=== PATIENT | male | born 1945 | race Caucasian/White ===

== ENCOUNTER → 2016-10-06 | Outpatient (CLI) | payer OTHER ==
[~2016-10-06] MED LIST: CIPR-255 PO; SERT25TA PO
--- NOTE | 2016-10-06 09:52 | DIAGNOSTIC IMAGING REPORT ---
CHEST 2 VIEWS ROUTINE CLINICAL HISTORY: R63.4 Unintentional weight [id number] dyspnea. Weight loss. COMPARISON STUDY: 12/22/2013 FINDINGS: Emphysematous change. There are no focal infiltrates. Mild diaphragmatic scarring. IMPRESSION: Emphysematous change. No acute process. Electronically signed by: Niall Ruiz M.D. 10/06/2016 9:51 AM Dictated Date/Time: 10/06/2016 9:50 AM
[2016-10-06 11:13] LABS: BASO % 0.9 %; BASO ABS # 0.05 K/uL (0-0.2); COMPLETE YES; EOS % 3.2 %; HEMATOCRIT 42.1 % (42-52); LYMPH % 21.9 %; LYMPH ABS # 1.22 K/uL (1.2-3.4); MEAN CELL VOLUME 90.7 fL (80-100); MEAN CORPUSCULAR HGB CONC 34.2 g/dl (32-36); MEAN PLATELET VOLUME 10.8 fL (7.4-10.4); MONO % 7.9 %; NEUT % 66.1 %; PLATELET COUNT 151 K/uL (130-400); RED BLOOD COUNT 4.64 M/uL (4.7-6.1); WHITE BLOOD COUNT 5.58 K/uL (4.8-10.8)
[2016-10-06 14:16] LABS: ALT/SGPT 35 U/L (12-78); BLOOD UREA NITROGEN 25 mg/dl (7-18); CALCIUM 8.9 mg/dl (8.5-10.1); CARBON DIOXIDE 32 mmol/L (21-32); CHLORIDE 107 mmol/L (98-107); CHOLESTEROL 97 mg/dl (0-200); CREATININE 0.88 mg/dl (0.60-1.40); GLUCOSE 86 mg/dl (70-99); POTASSIUM 4.7 mmol/L (3.5-5.1); SODIUM 143 mmol/L (136-145); URIC ACID 6.8 mg/dl (2.6-7.2)
[2016-10-06 14:25] LABS: ALB/GLOB RATIO 1.5 (0.9-2); ALKALINE PHOSPHATASE 86 U/L (45-117); AST/SGOT 25 U/L (15-37); CHOLESTEROL/HDL RATIO 2.9; HDL CHOLESTEROL 33 mg/dl; LDL CHOLESTEROL CALCULATED 50 mg/dl; TRIGLYCERIDES 70 mg/dl (0-150); VERY LOW DENSITY LIPOPROT CALC 14 mg/dl
== END | disposition home or self-care (01) ==
LOC: C.RADBC 09:18
PROVIDERS: ATTEND Family Medicine
DX: E03.9 Hypothyroidism, unspecified (principal); I25.10 Atherosclerotic heart disease of native coronary artery without angina pectoris; R63.4 Abnormal weight loss; M10.9 Gout, unspecified

== ENCOUNTER → 2017-02-02 | Outpatient (CLI) | payer OTHER ==
[2017-02-02 12:25] LABS: BASO % 0.8 %; BASO ABS # 0.04 K/uL (0-0.2); COMPLETE YES; EOS % 2.5 %; HEMATOCRIT 43.9 % (42-52); IG% 0.2 %; LYMPH % 21.3 %; LYMPH ABS # 1.09 K/uL (1.2-3.4); MEAN CELL VOLUME 92.4 fL (80-100); MEAN CORPUSCULAR HEMOGLOBIN 31.2 pg (25-34); MEAN CORPUSCULAR HGB CONC 33.7 g/dl (32-36); MEAN PLATELET VOLUME 10.8 fL (7.4-10.4); MONO % 10.4 %; NEUT % 64.8 %; PLATELET COUNT 167 K/uL (130-400); RED BLOOD COUNT 4.75 M/uL (4.7-6.1); WHITE BLOOD COUNT 5.11 K/uL (4.8-10.8)
[2017-02-02 12:44] LABS: ALT/SGPT 32 U/L (12-78); BLOOD UREA NITROGEN 26 mg/dl (7-18); CALCIUM 9.1 mg/dl (8.5-10.1); CARBON DIOXIDE 32 mmol/L (21-32); CHLORIDE 106 mmol/L (98-107); CREATININE 0.88 mg/dl (0.60-1.40); GLUCOSE 85 mg/dl (70-99); POTASSIUM 4.5 mmol/L (3.5-5.1); SODIUM 141 mmol/L (136-145)
[2017-02-02 12:55] LABS: ALB/GLOB RATIO 1.5 (0.9-2); ALKALINE PHOSPHATASE 87 U/L (45-117); AST/SGOT 23 U/L (15-37)
[2017-02-03 17:13] LABS: MICROSOMAL AB 36 IU/ML (<9); THYROGLOBULIN <0.1 NG/ML (2.8-40.9)
--- NOTE | 2017-02-17 12:40 | CODING QUERY MEDICAL NECESSITY ---
SUPPORTING DIAGNOSIS NEEDED A supporting diagnosis is required for the test/procedure performed on this patient in order for us to be reimbursed by the patient's insurance. Please provide a supporting diagnosis for the following test/procedure listed below next to the test name along with your signature. *If there is no additional diagnosis for this patient that would support the following test/procedure please document that below next to the test/procedure. Test(s)/Procedure(s) that require a supporting diagnosis: * VITAMIN D, 25-HYDROXY DIAGNOSIS: * VITAMIN B12 DIAGNOSIS: Provider Signature: Date: Thank you Alda Gonzalez [employer] Once completed, please kindly fax back to [phone] For questions please call [phone]
== END | disposition home or self-care (01) ==
LOC: C.LAB1850 10:08
PROVIDERS: ATTEND Physician Assistant
DX: E03.9 Hypothyroidism, unspecified (principal); R63.4 Abnormal weight loss

== ENCOUNTER → 2017-02-05 | Outpatient (CLI) | payer OTHER ==
--- NOTE | 2017-02-05 10:04 | DIAGNOSTIC IMAGING REPORT ---
LEFT LOWER EXTREMITY ULTRASOUND CLINICAL HISTORY: Lump of left lower extremity. COMPARISON STUDY: No previous studies for comparison. FINDINGS: Note is made of a 0.9 x 0.6 x 0.5 cm subcutaneous hypoechoic abnormality of the medial mid left calf. This reflects the palpable abnormality. No color flow is shown within this finding. Margins are not well-defined. No additional abnormalities are identified. IMPRESSION: 0.9 x 0.6 x 0.5 cm hypoechoic subcutaneous abnormality of the left calf which reflects the palpable abnormality. The sonographic appearance is nonspecific. This could reflect a hematoma or less likely abscess. A sebaceous cyst could appear similar. A neoplastic process is considered less likely but is within the differential and follow-up to ensure resolution is recommended. If this persists, short-term follow-up ultrasound or surgical consultation is recommended. Electronically signed by: Wenceslao Faye M.D. 02/05/2017 10:03 AM Dictated Date/Time: 02/05/2017 9:59 AM
--- NOTE | 2017-02-05 10:25 | DIAGNOSTIC IMAGING REPORT ---
TWO VIEW CHEST CLINICAL HISTORY: Unintended weight loss. FINDINGS: PA and lateral chest radiographs are compared to study dated 10/06/2016. The cardiomediastinal silhouette is unremarkable. There is atherosclerotic calcification of the thoracic aorta. The lungs are hyperinflated and hyperlucent with flattening of the diaphragm consistent with obstructive physiology. Chronic interstitial thickening is similar to previous. No airspace consolidation or pleural effusion is identified. There is no pneumothorax. The skeletal structures are osteopenic. The bony thorax appears intact. Mild degenerative change and scoliosis are noted in the thoracic spine. IMPRESSION: 1. Emphysema with no active disease in the chest. 2. No concerning pulmonary lesion is seen by x-ray. Note that chest x-ray is insensitive in screening for lung cancer and if there is strong clinical concern for pulmonary neoplasm then a chest CT should be considered. Electronically signed by: Norberto Marshall M.D. 02/05/2017 10:24 AM Dictated Date/Time: 02/05/2017 10:22 AM
--- NOTE | 2017-02-05 10:30 | DIAGNOSTIC IMAGING REPORT ---
LEFT TIBIA/FIBULA 2 VIEWS ROUTINE CLINICAL HISTORY: Lump of left lower extremity. COMPARISON: Left lower extremity ultrasound performed earlier today. FINDINGS: No fracture or osseous lesion is identified within the left tibia or fibula. Alignment of the left knee and ankle is anatomic. Talar dome is intact. There is minimal osteophytosis within the medial compartment of the left knee. IMPRESSION: No osseous abnormality of the left tibia or fibula. Electronically signed by: Wenceslao Faye M.D. 02/05/2017 10:28 AM Dictated Date/Time: 02/05/2017 10:27 AM
== END | disposition home or self-care (01) ==
LOC: C.ULTR 09:18
PROVIDERS: ATTEND Physician Assistant
DX: R63.4 Abnormal weight loss (principal); R22.42 Localized swelling, mass and lump, left lower limb

== ENCOUNTER → 2018-02-28 | Outpatient (CLI) | payer OTHER ==
[2018-02-28 13:14] LABS: BASO % 0.4 %; BASO ABS # 0.02 K/uL (0-0.2); EOS % 3.5 %; HEMATOCRIT 41.9 % (42-52); HEMOGLOBIN 13.7 g/dL (14.0-18.0); LYMPH % 17.9 %; LYMPH ABS # 1.01 K/uL (1.2-3.4); MEAN CELL VOLUME 94.6 fL (80-100); MEAN CORPUSCULAR HEMOGLOBIN 30.9 pg (25-34); MEAN CORPUSCULAR HGB CONC 32.7 g/dl (32-36); MEAN PLATELET VOLUME 10.8 fL (7.4-10.4); MONO % 9.8 %; MONO ABS # 0.55 K/uL (0.11-0.59); NEUT % 68.4 %; NEUT ABS # 3.86 K/uL (1.4-6.5); PLATELET COUNT 179 K/uL (130-400); RED CELL DISTRIBUTION WIDTH CV 13.1 % (11.5-14.5); RED CELL DISTRIBUTION WIDTH SD 44.7 fL (36.4-46.3); WHITE BLOOD COUNT 5.64 K/uL (4.8-10.8)
[2018-02-28 14:11] LABS: ALT/SGPT 23 U/L (12-78); AST/SGOT 17 U/L (15-37); BLOOD UREA NITROGEN 27 mg/dl (7-18); CALCIUM 8.8 mg/dl (8.5-10.1); CARBON DIOXIDE 30 mmol/L (21-32); CHOLESTEROL 126 mg/dl (0-200); GLUCOSE 98 mg/dl (70-99); LDL CHOLESTEROL CALCULATED 67 mg/dl; POTASSIUM 4.9 mmol/L (3.5-5.1); SODIUM 139 mmol/L (136-145)
== END | disposition home or self-care (01) ==
LOC: C.LABBC 09:51
PROVIDERS: ATTEND Internal Medicine
DX: Z00.00 Encounter for general adult medical examination without abnormal findings (principal); M10.9 Gout, unspecified; E03.9 Hypothyroidism, unspecified; I25.10 Atherosclerotic heart disease of native coronary artery without angina pectoris; A69.20 Lyme disease, unspecified; Z12.5 Encounter for screening for malignant neoplasm of prostate; E06.3 Autoimmune thyroiditis

== ENCOUNTER → 2018-03-07 | Outpatient (CLI) | payer OTHER ==
--- NOTE | 2018-03-07 12:40 | DIAGNOSTIC IMAGING REPORT ---
ULTRASOUND L VENOUS DOPP LOWER EXT UNILAT CLINICAL HISTORY: T14.8XXA Hematoma and contusion M79.89 Left leg [id number] L COMPARISON STUDY: No previous studies for comparison. FINDINGS: Real-time and color flow Doppler imaging were performed. Flow was seen within the femoral, popliteal and calf veins with no intraluminal thrombus demonstrated. The saphenous vein is patent. There is a complex collection along the left lateral thigh, deep to the superficial muscular layer. This measures 19 cm in length and is consistent with a large hematoma. IMPRESSION: 1. No evidence of left lower extremity DVT 2. Large deep left thigh hematoma measuring 19 cm in length. Electronically signed by: Memo Leone M.D. 03/07/2018 12:38 PM Dictated Date/Time: 03/07/2018 12:36 PM
== END | disposition home or self-care (01) ==
LOC: C.ULTR 12:10
PROVIDERS: ATTEND Physician Assistant
DX: T14.8XXA Other injury of unspecified body region, initial encounter (principal); M25.562 Pain in left knee; M79.89 Other specified soft tissue disorders; X58.XXXA Exposure to other specified factors, initial encounter

== ENCOUNTER → 2018-03-07 | Outpatient (CLI) | payer OTHER ==
--- NOTE | 2018-03-07 10:59 | DIAGNOSTIC IMAGING REPORT ---
L KNEE 3 VIEWS CLINICAL HISTORY: T14.8XXA Hematoma and [id number] Left leg [id number] L trauma. Pain. COMPARISON: None. DISCUSSION: The bones and joint spaces appear intact. There is no evidence of fracture, dislocation or bony disease. Generalized surrounding soft tissue edema. IMPRESSION: Soft tissue edema. No acute bony abnormality. The above report was generated using voice recognition software. It may contain grammatical, syntax or spelling errors. Electronically signed by: Niall Ruiz M.D. 03/07/2018 10:58 AM Dictated Date/Time: 03/07/2018 10:45 AM
== END | disposition home or self-care (01) ==
LOC: C.RAD1850 10:36
PROVIDERS: ATTEND Physician Assistant
DX: S80.02XA Contusion of left knee, initial encounter (principal); X58.XXXA Exposure to other specified factors, initial encounter; M79.89 Other specified soft tissue disorders